=== PATIENT | female | born 1985 | race Caucasian/White ===

== ENCOUNTER → 2017-11-02 | Outpatient (CLI) | payer BC | LOC: FLAB 14:12 | PROVIDERS: ATTEND Family Medicine | DX: M25.562 Pain in left knee (principal) ==

== ENCOUNTER 2018-05-25 19:29 | Emergency (ER) | payer BC ==
[2018-05-25] MEDS ORDERED: OXYCODONE/APAP 5/325 TAB PO ONE (19:55)
--- NOTE | 2018-05-25 19:59 | EDPHY ---
H & P Stated Complaint: COCCYX PAIN AFTER FALLING DOWN 4 STAIRS Time Seen by Provider: 05/25/18 19:53 HPI/ROS: HPI: This is a 32-year-old female who presents with Chief Complaint: COCCYX PAIN AFTER FALLING DOWN 4 STAIRS Location: buttock Quality: Injury/pain Duration: 45 min prior to arrival Signs and Symptoms: No bleeding, no radiation, no numbness, no weakness, no tingling, no incontinence, no decreased range of motion, no swelling, + pain, no fever Timing: Acute, constant Severity: 10/30 Context: Patient reports that she was walking down wooden stairs in her socks when she lost her balance and fell directly on her tailbone. She reports that it took her breath away. She reports that she felt immediate, constant, severe pain. She started to cry immediately. After some time she was able to ambulate on her own. She reports that she still has continued pain 10/30. Pain is worsened with palpating the area and flexion. Denies LOC/head injury/neck pain/dizziness/nausea/vomiting/amnesia. Modifying Factors: She has not taking any [id number] pain medications or applied ice Comment: ROS: A comprehensive 10 system review of systems is otherwise negative aside from elements mentioned in the history of present illness. MEDICAL/SURGICAL/SOCIAL HISTORY: Medical history: Generally healthy. Does not take any regular medications. Surgical history: Denies Social history: , employed as a teacher, nonsmoker. CONSTITUTIONAL: Polite and cooperative, young adult white female, awake and alert, no obvious distress HEENT: Atraumatic and normocephalic. NECK: supple, no midline tenderness, flexion 45 degrees, extension 45 degrees, right and left lateral flexion 45 degrees. No meningismus. Cardiovascular: Normal S1/S2, regular rate, regular rhythm, without murmur rub or gallop. PULMONARY/CHEST: Symmetrical and nontender. no crepitus. Clear to auscultation bilaterally. Good air movement. No accessory muscle usage. ABDOMEN: Soft, nondistended, nontender, no ecchymosis. BACK: Reproducible coccyx pain with no crepitus, step-off, bruising. no paraspinous spasm, deep tendon reflexes 2/2, no pain with straight leg raise, No foot drop. Achilles reflexes are equal bilaterally. Able to walk on heels and toes without difficulty. EXTREMITIES: 2/2 pulses, strength 5/5, DIP/PIP/MCP flexion/extension intact with good light touch sensation. no deformities, no clubbing, no cyanosis or edema. NEUROLOGICAL: no focal neuro deficits. GCS 15. Light touch sensation intact. Ambulatory without deficits. SKIN: Warm and dry, no erythema. no rash. Good capillary refill. Source: Patient Exam Limitations: No limitations - Personal History LMP (Females 10-55): 22-28 Days Ago Current Tetanus Diphtheria and Acellular Pertussis (TDAP): Yes - Medical/Surgical History Hx Asthma: No Hx Chronic Respiratory Disease: No Hx Diabetes: No Hx Cardiac Disease: No Hx Renal Disease: No Hx Cirrhosis: No Hx Alcoholism: No Hx HIV/AIDS: No Hx Splenectomy or Spleen Trauma: No Other PMH: DENIES - Social History Smoking Status: Never smoked Constitutional: Initial Vital Signs Temperature (C) 36.7 C 05/25/18 19:34 Heart Rate 92 05/25/18 19:34 Respiratory Rate 16 05/25/18 19:34 Blood Pressure 140/84 H 05/25/18 19:34 O2 Sat (%) 100 05/25/18 19:34 O2 Delivery Mode Room Air Allergies/Adverse Reactions: cephalexin [From Keflex] Allergy (Verified 05/25/18 19:33) Home Medications: Medication Instructions Recorded Adderall 10 MG (*) 05/25/18 Frovatriptan Succinate 05/25/18 Medical Decision Making - Diagnostics Imaging Results: Imaging Impressions Sacrum and Coccyx X-Ray 05/25/18 19:53 Impression: Negative for fracture. Lumbar Spine X-Ray 05/25/18 19:55 Impression:Negative lumbar spine radiographs. ED Course/Re-evaluation: Patient ambulate without assistance into the emergency room. Given ibuprofen 600 mg. Patient politely declined Percocet. Lumbosacral x-rays and coccyx x-rays ordered No emergent neurological deficits to warrant emergent MRI in the emergency room. X-rays my read shows no acute fracture. Given Percocet prepack, advised to sit on a donut, prevent constipation No signs of neurovascular compromise/tenting of skin/compartment syndrome/ extremities and joints examined above and below area of concern and are neurovascularly intact/cauda equina syndrome This patient was seen under the supervision of my secondary supervising physician. I evaluated care for this patient independently. Discussed this patient with Dr. Barone who did not see the patient. Differential Diagnosis: Difficult diagnosis includes but is not limited to pelvic fracture, coccyx fracture, lumbar fracture, contusion. - Data Points Medications Given: Discontinued Medications Ibuprofen (Motrin) 600 mg PO EDNOW ONE Stop: 05/25/18 20:14 Last Admin: 05/25/18 20:26 Dose: 600 mg Oxycodone/Acetaminophen (Percocet 5/325) 1 tab PO EDNOW ONE Stop: 05/25/18 19:56 Last Admin: 05/25/18 21:00 Dose: 1 tab Oxycodone/Acetaminophen (Percocet 5/325mg Prepack#4) 1 btl TAKEHOME EDNOW ONE Stop: 05/25/18 20:38 Last Admin: 05/25/18 21:00 Dose: 1 btl Departure - Departure Disposition: Home, Routine, Self-Care Clinical Impression: Coccyx contusion Qualifiers: Encounter type: initial encounter Qualified Code(s): S30.0XXA - Contusion of lower back and pelvis, initial encounter Condition: Good Instructions: Oxycodone/Acetaminophen (By mouth), Coccyx Injury (ED) Additional Instructions: Take Tylenol 650 mg every 4 hours and/or Ibuprofen 600 mg every 8 hours with food as needed for pain. Use Percocet every 6 hours as needed for severe/break through pain. Do not use Tylenol and Percocet concomitantly. Apply ice for 30 minutes at a time; 2-3 times per day for the next 1-2 days. Sit on a donut to distribute weight and minimize pain. Please drink plenty of fluids and take stool softeners daily as needed to prevent constipation. The x-rays obtained in the emergency department today demonstrate no evidence of an obvious fracture. Sometimes fractures are not obvious on the initial set of x-rays performed in the ED. For this reason, you should have repeat x-rays performed in 7-10 days if you are having any pain exclude the possibility of an occult fracture. Referrals: Amalia Feliz MD [Primary Care Provider] - As per Instructions
[2018-05-25] MEDS ORDERED: IBUPROFEN 600 MG TAB PO ONE (20:13)
[2018-05-25] MEDS ORDERED: OXYCODONE/APAP 5/325MG PREPACK#4 BTL TAKEHOME ONE (20:37)
[2018-05-25 21:10] VITALS: BP 114/66
== END 2018-05-25 21:15 | disposition home or self-care (01) ==
DX: S30.0XXA Contusion of lower back and pelvis, initial encounter (principal); W10.8XXA Fall (on) (from) other stairs and steps, initial encounter